=== PATIENT | male | born 1990 | race Caucasian/White ===

== ENCOUNTER 2018-02-02 12:50 | Inpatient (IN) | payer MEDICAID ==
[2018-02-02 15:02] LABS: WHITE BLOOD COUNT 8.7 10^3/ul (4.8-10.8)
[2018-02-02 15:02] LABS: ABNORMAL IP MESSAGE 1; HEMATOCRIT 22.9 % (42.0-52.0); MEAN CORPUSCULAR HEMOGLOBIN 17.1 pg (29.0-33.0); MEAN CORPUSCULAR HGB CONC 26.6 g/dl (32.0-37.0); MEAN CORPUSCULAR VOLUME 64.1 fl (82.0-101.0); MEAN PLATELET VOLUME 9.9 fl (7.4-10.4); PLATELET COUNT 516 10^3/UL (140-415); POSITIVE DIFF @See below; RED BLOOD COUNT 3.57 10^6/ul (4.70-6.10)
[2018-02-02 15:07] LABS: ADD MAN DIFF? YES; HEMOGLOBIN 6.1 g/dl (14.0-18.0)
[2018-02-02 15:18] LABS: INR 1.02; PARTIAL THROMBOPLASTIN TIME 27.1 Sec (25.0-35.0); PROTIME 13.5 Sec (11.9-14.9); PT RATIO 1.1
[2018-02-02 15:20] LABS: ALANINE AMINOTRANSFERASE 24 IU/L (13-69); ALBUMIN 3.6 g/dl (3.3-4.9); ALBUMIN/GLOBULIN RATIO 1.16; ALKALINE PHOSPHATASE 74 IU/L (42-121); ANION GAP 14 (8-16); ASPARTATE AMINO TRANSFERASE 16 IU/L (15-46); BILIRUBIN,INDIRECT 0.1 mg/dl (0-1.1); BILIRUBIN,TOTAL 0.1 mg/dl (0.2-1.3); BLOOD UREA NITROGEN 11 mg/dl (7-20); CALCIUM 8.7 mg/dl (8.4-10.2); CARBON DIOXIDE 30 mmol/L (21-31); CHLORIDE 103 mmol/L (97-110); CREATININE 0.66 mg/dl (0.61-1.24); GLUCOSE 94 mg/dl (70-220); POTASSIUM 3.6 mmol/L (3.5-5.1); SODIUM 143 mmol/L (135-144); TOTAL PROTEIN 6.7 g/dl (6.1-8.1)
[2018-02-02 15:34] LABS: TROPONIN-I < 0.012 ng/ml (0.000-0.120)
[2018-02-02 15:35] LABS: ANISOCYTOSIS 3+ (0-0); BAND NEUTROPHILS % (M) 1 % (0-4); GIANT THROMBO% (M) 1 % (0-0); HYPOCHROMASIA 3+ (0-0); LYMPHOCYTES #M 1.3 10^3/ul (0.8-2.9); LYMPHOCYTES % (M) 15 % (15-51); MICROCYTOSIS 3+ (0-0); MONOCYTE #M 0.4 10^3/ul (0.3-0.9); MONOCYTES % (M) 5 % (0-11); PLATELET ESTIMATE INCREASED; POIKILOCYTOSIS 1+ (0-0); POLYCHROMASIA 1+ (0-0); SEG NEUT #M 6.9 10^3/ul (1.6-7.5); SEGMENTED NEUTROPHILS (M) % 79 % (39-77); SMUDGE%M 6 % (0-0)
[2018-02-02 16:03] LABS: OCCULT BLOOD STOOL NEGATIVE (NEGATIVE)
[2018-02-02 16:07] LABS: IRON 15 ug/dl (35-150)
[2018-02-02 16:07] LABS: LIPASE 66 U/L (23-300)
[2018-02-02 16:16] LABS: % IRON SATURATION 3 % SAT (22-52); TOTAL IRON BINDING CAPACITY 434 ug/dl (241-421)
[2018-02-02] MEDS ORDERED: PANTOPRAZOLE 40 MG INJ IV (16:30)
[2018-02-02] MEDS ORDERED: ACETAMINOPHEN 325 MG TAB PO ×2 (16:30→20:00)
[2018-02-02] MEDS ORDERED: ONDANSETRON 4 MG INJ IV ×2 (16:30→20:00)
[2018-02-02] MEDS ORDERED: NACL 0.9% 3 ML SYG IV (17:00)
[2018-02-02] MEDS: PANTOPRAZOLE IV 80 MG in SOD CHLORIDE 0.9% 100 ML IV (17:29)
[2018-02-02 17:45] LABS: IMMEDIATE SPIN CROSSMATCH 1 1
[2018-02-02] MEDS: SOD CHLORIDE 0.9% 250 ML IV (17:49)
[2018-02-02 17:53] LABS: FERRITIN 1.5 ng/ml (17.9-464.0)
[2018-02-02] MEDS ORDERED: traMADol 50 MG TAB PO (20:00)
[2018-02-03 06:16] LABS: ADD MAN DIFF? NO
[2018-02-03 06:17] LABS: WHITE BLOOD COUNT 7.3 10^3/ul (4.8-10.8)
[2018-02-03 06:17] LABS: ABNORMAL IP MESSAGE 1; BASOPHIL # 0.1 10^3/ul (0.0-0.1); BASOPHILS % 1.5 % (0.0-2.0); EOSINOPHILS # 0.2 10^3/ul (0.0-0.5); EOSINOPHILS % 2.3 % (0.0-7.0); HEMOGLOBIN 7.7 g/dl (14.0-18.0); LYMPHOCYTES # 1.5 10^3/ul (0.8-2.9); LYMPHOCYTES % 21.1 % (15.0-51.0); MEAN CORPUSCULAR HEMOGLOBIN 18.4 pg (29.0-33.0); MEAN CORPUSCULAR HGB CONC 27.5 g/dl (32.0-37.0); MEAN CORPUSCULAR VOLUME 66.8 fl (82.0-101.0); MONOCYTE # 0.7 10^3/ul (0.3-0.9); MONOCYTES % 10.1 % (0.0-11.0); NEUTROPHIL # 4.7 10^3/ul (1.6-7.5); NEUTROPHILS % 64.9 % (39.0-77.0); PLATELET COUNT 522 10^3/UL (140-415); POSITIVE DIFF @See below; RED BLOOD COUNT 4.19 10^6/ul (4.70-6.10)
[2018-02-03 06:37] LABS: ALANINE AMINOTRANSFERASE 22 IU/L (13-69); ALBUMIN 3.8 g/dl (3.3-4.9); ALBUMIN/GLOBULIN RATIO 1.08; ALKALINE PHOSPHATASE 96 IU/L (42-121); ANION GAP 16 (8-16); ASPARTATE AMINO TRANSFERASE 19 IU/L (15-46); BILIRUBIN,INDIRECT 0.6 mg/dl (0-1.1); BILIRUBIN,TOTAL 0.6 mg/dl (0.2-1.3); BLOOD UREA NITROGEN 11 mg/dl (7-20); CALCIUM 8.7 mg/dl (8.4-10.2); CARBON DIOXIDE 26 mmol/L (21-31); CHLORIDE 104 mmol/L (97-110); GLUCOSE 89 mg/dl (70-220); POTASSIUM 4.1 mmol/L (3.5-5.1); SODIUM 142 mmol/L (135-144); TOTAL PROTEIN 7.3 g/dl (6.1-8.1)
[2018-02-03] MEDS: SOD CHLORIDE 0.9% 100 ML (11:03)
[2018-02-03] MEDS: IOHEXOL 300MG/ML 150 ML BTL (11:03)
[2018-02-03] MEDS: BISACODYL (EC) 5 MG TAB PO ×2 (15:13→20:03)
[2018-02-03] MEDS: MAGNESIUM CITRATE 300 ML BTL PO (16:14)
[2018-02-03] MEDS: POLYETHYLENE GLYCOL 3350 119 GM POWDER PO ×2 (16:14→20:03)
[2018-02-03] MEDS: SOD FERRIC GLUC COMPLX 125 MG in SOD CHLORIDE 0.9% 100 ML IVPB (16:31)
[2018-02-03] MEDS: PANTOPRAZOLE 40 MG INJ IV (18:15)
[2018-02-04] MEDS: PANTOPRAZOLE 40 MG INJ IV ×2 (05:49→18:46)
[2018-02-04 07:13] LABS: ADD MAN DIFF? NO
[2018-02-04 07:18] LABS: ABNORMAL IP MESSAGE 1; BASOPHIL # 0.1 10^3/ul (0.0-0.1); BASOPHILS % 1.5 % (0.0-2.0); EOSINOPHILS # 0.1 10^3/ul (0.0-0.5); EOSINOPHILS % 1.1 % (0.0-7.0); HEMATOCRIT 28.9 % (42.0-52.0); HEMOGLOBIN 8.2 g/dl (14.0-18.0); LYMPHOCYTES # 1.1 10^3/ul (0.8-2.9); LYMPHOCYTES % 15.3 % (15.0-51.0); MEAN CORPUSCULAR HEMOGLOBIN 18.6 pg (29.0-33.0); MEAN CORPUSCULAR HGB CONC 28.4 g/dl (32.0-37.0); MEAN CORPUSCULAR VOLUME 65.7 fl (82.0-101.0); MONOCYTE # 0.7 10^3/ul (0.3-0.9); MONOCYTES % 9.5 % (0.0-11.0); NEUTROPHIL # 5.4 10^3/ul (1.6-7.5); NEUTROPHILS % 72.3 % (39.0-77.0); PLATELET COUNT 551 10^3/UL (140-415); POSITIVE DIFF @See below; RED CELL DISTRIBUTION WIDTH 21.2 % (11.5-14.5)
[2018-02-04 07:18] LABS: WHITE BLOOD COUNT 7.5 10^3/ul (4.8-10.8)
[2018-02-04 07:44] LABS: ALANINE AMINOTRANSFERASE 23 IU/L (13-69); ALBUMIN 4.1 g/dl (3.3-4.9); ALBUMIN/GLOBULIN RATIO 1.13; ALKALINE PHOSPHATASE 98 IU/L (42-121); ANION GAP 17 (8-16); ASPARTATE AMINO TRANSFERASE 20 IU/L (15-46); BILIRUBIN,INDIRECT 0.4 mg/dl (0-1.1); BILIRUBIN,TOTAL 0.4 mg/dl (0.2-1.3); BLOOD UREA NITROGEN 15 mg/dl (7-20); CARBON DIOXIDE 25 mmol/L (21-31); CHLORIDE 106 mmol/L (97-110); CREATININE 0.75 mg/dl (0.61-1.24); GLUCOSE 84 mg/dl (70-220); SODIUM 144 mmol/L (135-144); TOTAL PROTEIN 7.7 g/dl (6.1-8.1)
[2018-02-04 07:51] LABS: INR 1.09; PROTIME 14.3 Sec (11.9-14.9); PT RATIO 1.1
[2018-02-04] MEDS: SOD FERRIC GLUC COMPLX 125 MG in SOD CHLORIDE 0.9% 100 ML IVPB (17:00)
[2018-02-04] MEDS: PROPOFOL 20 ML (17:00)
[2018-02-05] MEDS: PANTOPRAZOLE 40 MG INJ IV ×2 (06:52→17:42)
[2018-02-05 06:53] LABS: ADD MAN DIFF? NO; HAAIG REFLEX REFLEX FILED
[2018-02-05 07:00] LABS: ABNORMAL IP MESSAGE 1; BASOPHIL # 0.1 10^3/ul (0.0-0.1); BASOPHILS % 1.6 % (0.0-2.0); EOSINOPHILS # 0.2 10^3/ul (0.0-0.5); EOSINOPHILS % 2.3 % (0.0-7.0); HEMATOCRIT 27.9 % (42.0-52.0); HEMOGLOBIN 7.9 g/dl (14.0-18.0); LYMPHOCYTES # 1.1 10^3/ul (0.8-2.9); MEAN CORPUSCULAR HEMOGLOBIN 18.9 pg (29.0-33.0); MEAN CORPUSCULAR HGB CONC 28.3 g/dl (32.0-37.0); MEAN CORPUSCULAR VOLUME 66.6 fl (82.0-101.0); MEAN PLATELET VOLUME 9.8 fl (7.4-10.4); MONOCYTE # 0.7 10^3/ul (0.3-0.9); MONOCYTES % 10.4 % (0.0-11.0); NEUTROPHIL # 4.4 10^3/ul (1.6-7.5); NEUTROPHILS % 68.5 % (39.0-77.0); PLATELET COUNT 533 10^3/UL (140-415); POSITIVE DIFF @See below; RED BLOOD COUNT 4.19 10^6/ul (4.70-6.10); RED CELL DISTRIBUTION WIDTH 21.4 % (11.5-14.5)
[2018-02-05 07:00] LABS: WHITE BLOOD COUNT 6.4 10^3/ul (4.8-10.8)
[2018-02-05 07:27] LABS: ANION GAP 16 (8-16); BLOOD UREA NITROGEN 16 mg/dl (7-20); CALCIUM 8.9 mg/dl (8.4-10.2); CARBON DIOXIDE 26 mmol/L (21-31); CHLORIDE 105 mmol/L (97-110); CREATININE 0.79 mg/dl (0.61-1.24); GLUCOSE 80 mg/dl (70-220); MAGNESIUM 2.1 mg/dl (1.7-2.5); PHOSPHORUS 4.8 mg/dl (2.5-4.9); POTASSIUM 4.1 mmol/L (3.5-5.1); SODIUM 143 mmol/L (135-144)
[2018-02-05 07:52] LABS: HEPATITIS B SURFACE ANTIGEN NEGATIVE (NEGATIVE)
[2018-02-05 08:10] LABS: HEPATITIS B CORE ANTIBODY NEGATIVE (NEGATIVE); HEPATITIS C VIRAL ANTIBODY NEGATIVE (NEGATIVE)
[2018-02-05 08:11] LABS: HIV 1&2 ANTIBODY NEGATIVE (NEGATIVE)
[2018-02-05 11:32] LABS: PATH REVIEW CH
[2018-02-05 16:36] LABS: CARCINOEMBRYONIC ANTIGEN 0.8 ng/ml (0.0-5.0)
[2018-02-05] MEDS: SOD FERRIC GLUC COMPLX 125 MG in SOD CHLORIDE 0.9% 100 ML IVPB (17:43)
[2018-02-06] MEDS: PANTOPRAZOLE 40 MG INJ IV ×2 (05:36→18:01)
[2018-02-06 06:15] LABS: ADD MAN DIFF? NO
[2018-02-06 06:18] LABS: WHITE BLOOD COUNT 7.2 10^3/ul (4.8-10.8)
[2018-02-06 06:18] LABS: ABNORMAL IP MESSAGE 1; BASOPHIL # 0.1 10^3/ul (0.0-0.1); BASOPHILS % 1.8 % (0.0-2.0); EOSINOPHILS # 0.2 10^3/ul (0.0-0.5); EOSINOPHILS % 3.3 % (0.0-7.0); HEMATOCRIT 27.4 % (42.0-52.0); HEMOGLOBIN 7.8 g/dl (14.0-18.0); LYMPHOCYTES # 1.3 10^3/ul (0.8-2.9); LYMPHOCYTES % 18.6 % (15.0-51.0); MEAN CORPUSCULAR HEMOGLOBIN 19.2 pg (29.0-33.0); MEAN CORPUSCULAR HGB CONC 28.5 g/dl (32.0-37.0); MEAN CORPUSCULAR VOLUME 67.3 fl (82.0-101.0); MEAN PLATELET VOLUME 10.2 fl (7.4-10.4); MONOCYTE # 0.8 10^3/ul (0.3-0.9); MONOCYTES % 11.1 % (0.0-11.0); NEUTROPHIL # 4.7 10^3/ul (1.6-7.5); NEUTROPHILS % 64.9 % (39.0-77.0); PLATELET COUNT 501 10^3/UL (140-415); POSITIVE DIFF @See below; RED BLOOD COUNT 4.07 10^6/ul (4.70-6.10); RED CELL DISTRIBUTION WIDTH 21.3 % (11.5-14.5)
[2018-02-06] MEDS: IOHEXOL 300MG/ML 150 ML BTL ×3 (06:45→06:47)
[2018-02-06] MEDS: SOD CHLORIDE 0.9% 100 ML (06:47)
[2018-02-06 06:56] LABS: ANION GAP 14 (8-16); BLOOD UREA NITROGEN 10 mg/dl (7-20); CALCIUM 8.8 mg/dl (8.4-10.2); CARBON DIOXIDE 28 mmol/L (21-31); CHLORIDE 106 mmol/L (97-110); CREATININE 0.77 mg/dl (0.61-1.24); GLUCOSE 87 mg/dl (70-220); MAGNESIUM 1.9 mg/dl (1.7-2.5); POTASSIUM 3.9 mmol/L (3.5-5.1); SODIUM 144 mmol/L (135-144)
[2018-02-06] MEDS: SOD FERRIC GLUC COMPLX 125 MG in SOD CHLORIDE 0.9% 100 ML IVPB (17:00)
[2018-02-07] MEDS: PANTOPRAZOLE 40 MG INJ IV ×2 (05:29→17:20)
[2018-02-07 06:39] LABS: OCCULT BLOOD STOOL NEGATIVE (NEGATIVE)
[2018-02-07 07:12] LABS: ADD MAN DIFF? NO
[2018-02-07 07:15] LABS: WHITE BLOOD COUNT 7.4 10^3/ul (4.8-10.8)
[2018-02-07 07:15] LABS: ABNORMAL IP MESSAGE 1; BASOPHIL # 0.1 10^3/ul (0.0-0.1); BASOPHILS % 1.6 % (0.0-2.0); EOSINOPHILS # 0.2 10^3/ul (0.0-0.5); EOSINOPHILS % 2.8 % (0.0-7.0); HEMATOCRIT 30.6 % (42.0-52.0); HEMOGLOBIN 8.4 g/dl (14.0-18.0); LYMPHOCYTES # 1.2 10^3/ul (0.8-2.9); LYMPHOCYTES % 16.3 % (15.0-51.0); MEAN CORPUSCULAR HEMOGLOBIN 18.9 pg (29.0-33.0); MEAN CORPUSCULAR HGB CONC 27.5 g/dl (32.0-37.0); MEAN CORPUSCULAR VOLUME 68.8 fl (82.0-101.0); MEAN PLATELET VOLUME 9.6 fl (7.4-10.4); MONOCYTE # 0.6 10^3/ul (0.3-0.9); MONOCYTES % 7.9 % (0.0-11.0); NEUTROPHIL # 5.3 10^3/ul (1.6-7.5); NEUTROPHILS % 71.1 % (39.0-77.0); PLATELET COUNT 534 10^3/UL (140-415); POSITIVE DIFF @See below; RED BLOOD COUNT 4.45 10^6/ul (4.70-6.10); RED CELL DISTRIBUTION WIDTH 23.6 % (11.5-14.5)
[2018-02-07 07:58] LABS: ANION GAP 12 (8-16); BLOOD UREA NITROGEN 6 mg/dl (7-20); CALCIUM 9.2 mg/dl (8.4-10.2); CARBON DIOXIDE 29 mmol/L (21-31); CHLORIDE 108 mmol/L (97-110); CREATININE 0.73 mg/dl (0.61-1.24); GLUCOSE 97 mg/dl (70-220); MAGNESIUM 1.8 mg/dl (1.7-2.5); PHOSPHORUS 3.5 mg/dl (2.5-4.9); POTASSIUM 4.1 mmol/L (3.5-5.1); SODIUM 145 mmol/L (135-144)
[2018-02-07] MEDS: SOD FERRIC GLUC COMPLX 125 MG in SOD CHLORIDE 0.9% 100 ML IVPB (16:40)
[2018-02-08 05:49] LABS: ADD MAN DIFF? NO
[2018-02-08 05:52] LABS: WHITE BLOOD COUNT 9.7 10^3/ul (4.8-10.8)
[2018-02-08 05:52] LABS: ABNORMAL IP MESSAGE 1; BASOPHIL # 0.1 10^3/ul (0.0-0.1); BASOPHILS % 1.2 % (0.0-2.0); EOSINOPHILS # 0.3 10^3/ul (0.0-0.5); EOSINOPHILS % 2.9 % (0.0-7.0); HEMATOCRIT 29.5 % (42.0-52.0); HEMOGLOBIN 8.3 g/dl (14.0-18.0); LYMPHOCYTES # 1.3 10^3/ul (0.8-2.9); LYMPHOCYTES % 13.4 % (15.0-51.0); MEAN CORPUSCULAR HEMOGLOBIN 19.4 pg (29.0-33.0); MEAN CORPUSCULAR HGB CONC 28.1 g/dl (32.0-37.0); MEAN CORPUSCULAR VOLUME 69.1 fl (82.0-101.0); MEAN PLATELET VOLUME 9.7 fl (7.4-10.4); MONOCYTE # 0.8 10^3/ul (0.3-0.9); NEUTROPHIL # 7.2 10^3/ul (1.6-7.5); NEUTROPHILS % 74.1 % (39.0-77.0); PLATELET COUNT 475 10^3/UL (140-415); POSITIVE DIFF @See below; RED BLOOD COUNT 4.27 10^6/ul (4.70-6.10); RED CELL DISTRIBUTION WIDTH 25.2 % (11.5-14.5)
[2018-02-08] MEDS: PANTOPRAZOLE 40 MG INJ IV ×2 (06:06→17:41)
[2018-02-08 06:19] LABS: ANION GAP 11 (8-16); BLOOD UREA NITROGEN 7 mg/dl (7-20); CALCIUM 9.1 mg/dl (8.4-10.2); CARBON DIOXIDE 30 mmol/L (21-31); CHLORIDE 106 mmol/L (97-110); CREATININE 0.76 mg/dl (0.61-1.24); GLUCOSE 90 mg/dl (70-220); MAGNESIUM 1.9 mg/dl (1.7-2.5); PHOSPHORUS 3.7 mg/dl (2.5-4.9); SODIUM 143 mmol/L (135-144)
[2018-02-08 07:11] LABS: ERYTHROCYTE SEDIMENTATION RATE 40 mm/Hr (0-15)
[2018-02-09] MEDS: PANTOPRAZOLE 40 MG INJ IV (05:34)
[2018-02-09 06:04] LABS: ADD MAN DIFF? NO
[2018-02-09 06:15] LABS: ABNORMAL IP MESSAGE 1; BASOPHIL # 0.1 10^3/ul (0.0-0.1); BASOPHILS % 1.1 % (0.0-2.0); EOSINOPHILS # 0.4 10^3/ul (0.0-0.5); EOSINOPHILS % 3.4 % (0.0-7.0); HEMATOCRIT 32.8 % (42.0-52.0); HEMOGLOBIN 9.3 g/dl (14.0-18.0); LYMPHOCYTES # 1.3 10^3/ul (0.8-2.9); LYMPHOCYTES % 12.2 % (15.0-51.0); MEAN CORPUSCULAR HGB CONC 28.4 g/dl (32.0-37.0); MEAN CORPUSCULAR VOLUME 70.5 fl (82.0-101.0); MONOCYTE # 0.9 10^3/ul (0.3-0.9); NEUTROPHILS % 74.9 % (39.0-77.0); PLATELET COUNT 499 10^3/UL (140-415); POSITIVE DIFF @See below; RED BLOOD COUNT 4.65 10^6/ul (4.70-6.10); RED CELL DISTRIBUTION WIDTH 27.5 % (11.5-14.5)
[2018-02-09 06:15] LABS: WHITE BLOOD COUNT 10.7 10^3/ul (4.8-10.8)
[2018-02-09 06:33] LABS: ANION GAP 13 (8-16); BLOOD UREA NITROGEN 9 mg/dl (7-20); CALCIUM 9.2 mg/dl (8.4-10.2); CARBON DIOXIDE 29 mmol/L (21-31); CHLORIDE 105 mmol/L (97-110); CREATININE 0.73 mg/dl (0.61-1.24); GLUCOSE 88 mg/dl (70-220); PHOSPHORUS 4.2 mg/dl (2.5-4.9); POTASSIUM 4.2 mmol/L (3.5-5.1); SODIUM 143 mmol/L (135-144)
[2018-02-10] MEDS: PANTOPRAZOLE (EC) 40 MG TAB PO (05:50)
[2018-02-10 06:25] LABS: ADD MAN DIFF? NO
[2018-02-10 06:30] LABS: ABNORMAL IP MESSAGE 1; BASOPHIL # 0.1 10^3/ul (0.0-0.1); BASOPHILS % 0.9 % (0.0-2.0); EOSINOPHILS # 0.4 10^3/ul (0.0-0.5); EOSINOPHILS % 3.5 % (0.0-7.0); HEMATOCRIT 32.6 % (42.0-52.0); HEMOGLOBIN 9.4 g/dl (14.0-18.0); LYMPHOCYTES # 1.5 10^3/ul (0.8-2.9); LYMPHOCYTES % 12.2 % (15.0-51.0); MEAN CORPUSCULAR HEMOGLOBIN 20.4 pg (29.0-33.0); MEAN CORPUSCULAR HGB CONC 28.8 g/dl (32.0-37.0); MEAN CORPUSCULAR VOLUME 70.7 fl (82.0-101.0); MEAN PLATELET VOLUME 9.9 fl (7.4-10.4); MONOCYTE # 1.1 10^3/ul (0.3-0.9); MONOCYTES % 9.1 % (0.0-11.0); NEUTROPHILS % 73.9 % (39.0-77.0); PLATELET COUNT 472 10^3/UL (140-415); POSITIVE DIFF @See below; RED BLOOD COUNT 4.61 10^6/ul (4.70-6.10); RED CELL DISTRIBUTION WIDTH 28.3 % (11.5-14.5)
[2018-02-10 06:30] LABS: WHITE BLOOD COUNT 12.1 10^3/ul (4.8-10.8)
[2018-02-10 07:37] LABS: ANION GAP 15 (8-16); BLOOD UREA NITROGEN 12 mg/dl (7-20); CALCIUM 9.2 mg/dl (8.4-10.2); CARBON DIOXIDE 27 mmol/L (21-31); CHLORIDE 104 mmol/L (97-110); CREATININE 0.69 mg/dl (0.61-1.24); GLUCOSE 90 mg/dl (70-220); MAGNESIUM 2.1 mg/dl (1.7-2.5); PHOSPHORUS 4.2 mg/dl (2.5-4.9); POTASSIUM 4.3 mmol/L (3.5-5.1); SODIUM 142 mmol/L (135-144)
== END 2018-02-10 11:58 | disposition home or self-care (01) | DRG 375 ==
LOC: FTE 12:50 → PP2 16:05
PROC: 0DB98ZX Excision of Duodenum, Via Natural or Artificial Opening Endoscopic, Diagnostic (ICD-10-PCS; principal; 2018-02-04 16:30)
PROC: 0DB68ZX Excision of Stomach, Via Natural or Artificial Opening Endoscopic, Diagnostic (ICD-10-PCS; 2018-02-04 16:30)
PROC: 0DBP8ZX Excision of Rectum, Via Natural or Artificial Opening Endoscopic, Diagnostic (ICD-10-PCS; 2018-02-04 16:30)
PROC: 30233N1 Transfusion of Nonautologous Red Blood Cells into Peripheral Vein, Percutaneous Approach (ICD-10-PCS; 2018-02-04 16:30)
DX: C20 Malignant neoplasm of rectum (principal); E44.0 Moderate protein-calorie malnutrition; Z68.1 Body mass index [BMI] 19.9 or less, adult; K29.70 Gastritis, unspecified, without bleeding; D50.0 Iron deficiency anemia secondary to blood loss (chronic); K44.9 Diaphragmatic hernia without obstruction or gangrene; D47.3 Essential (hemorrhagic) thrombocythemia
CPT/HCPCS: 36415; 36430; 71270; 72197; 74018; 74177; 77334; 80048; 80053; 82270; 82378; 82728; 83540; 83690; 83735; 84100; 84443; 84484; 85025; 85610; 85651; 85730; 86703; 86704; 86709; 86803; 86850; 86900; 86901; 86920; 87340; 88305; 88312; 93005; 96374; 99291-25

== ENCOUNTER 2018-02-15 08:50 | Observation (INO) | payer MEDICAID ==
[~2018-02-15 08:50] MED LIST: CEFAZOLIN 2 GM/50 ML (PMX) 50 ML IVPB
[2018-02-15] MEDS ORDERED: FENTAnyl 50 MCG/ML VIAL (10:30)
[2018-02-15] MEDS ORDERED: LIDOCAINE 2% (SDV) 5 ML INJ (10:30)
[2018-02-15] MEDS ORDERED: PROPOFOL 20 ML (10:30)
[2018-02-15] MEDS ORDERED: ONDANSETRON 4 MG INJ (10:30)
[2018-02-15] MEDS ORDERED: CEFAZOLIN 1 GM INJ (10:32)
[2018-02-15 10:46] LABS: ADD MAN DIFF? NO
[2018-02-15 10:49] LABS: WHITE BLOOD COUNT 6.2 10^3/ul (4.8-10.8)
[2018-02-15 10:49] LABS: ABNORMAL IP MESSAGE 1; BASOPHIL # 0.1 10^3/ul (0.0-0.1); BASOPHILS % 1.5 % (0.0-2.0); EOSINOPHILS # 0.2 10^3/ul (0.0-0.5); EOSINOPHILS % 3.4 % (0.0-7.0); HEMATOCRIT 29.3 % (42.0-52.0); HEMOGLOBIN 8.6 g/dl (14.0-18.0); LYMPHOCYTES # 1.4 10^3/ul (0.8-2.9); LYMPHOCYTES % 23.1 % (15.0-51.0); MEAN CORPUSCULAR HEMOGLOBIN 21.8 pg (29.0-33.0); MEAN CORPUSCULAR HGB CONC 29.4 g/dl (32.0-37.0); MEAN CORPUSCULAR VOLUME 74.4 fl (82.0-101.0); MEAN PLATELET VOLUME 10.4 fl (7.4-10.4); MONOCYTE # 0.3 10^3/ul (0.3-0.9); MONOCYTES % 5.5 % (0.0-11.0); NEUTROPHIL # 4.1 10^3/ul (1.6-7.5); NEUTROPHILS % 66.2 % (39.0-77.0); PLATELET COUNT 446 10^3/UL (140-415); POSITIVE DIFF @See below; RED BLOOD COUNT 3.94 10^6/ul (4.70-6.10)
[2018-02-15 10:59] LABS: HOLD TRANSMISSIONS 1
[2018-02-15 11:13] LABS: ALANINE AMINOTRANSFERASE 15 IU/L (13-69); ALBUMIN 3.5 g/dl (3.3-4.9); ALBUMIN/GLOBULIN RATIO 1.06; ALKALINE PHOSPHATASE 72 IU/L (42-121); ANION GAP 13 (8-16); ASPARTATE AMINO TRANSFERASE 18 IU/L (15-46); BILIRUBIN,INDIRECT 0.4 mg/dl (0-1.1); BILIRUBIN,TOTAL 0.4 mg/dl (0.2-1.3); CARBON DIOXIDE 27 mmol/L (21-31); CHLORIDE 106 mmol/L (97-110); GLUCOSE 88 mg/dl (70-220); TOTAL PROTEIN 6.8 g/dl (6.1-8.1)
[2018-02-15 11:18] LABS: POTASSIUM 3.9 mmol/L (3.5-5.1); SODIUM 142 mmol/L (135-144)
[2018-02-15 11:19] LABS: BLOOD UREA NITROGEN 12 mg/dl (7-20); CALCIUM 8.6 mg/dl (8.4-10.2); CREATININE 0.65 mg/dl (0.61-1.24)
[2018-02-15 11:26] LABS: INR 1.03; PROTIME 13.6 Sec (11.9-14.9); PT RATIO 1.1
[2018-02-15 11:40] LABS: PARTIAL THROMBOPLASTIN TIME 29.7 Sec (25.0-35.0)
[2018-02-15] MEDS ORDERED: ONDANSETRON 4 MG INJ IV ×2 (12:00→14:00)
[2018-02-15] MEDS ORDERED: HYDROmorphONE (0.2 MG/ML) 10ML SYG IV ×2 (12:00)
[2018-02-15] MEDS ORDERED: FENTAnyl 50 MCG/ML VIAL IV ×2 (12:00)
[2018-02-15] MEDS: LACTATED RINGER'S 1,000 ML IV (13:55)
[2018-02-15] MEDS: SOD CHLORIDE 0.9% 1,000 ML IV ×2 (13:55→17:59)
[2018-02-15] MEDS ORDERED: morphine 2 MG INJ IV (14:00)
[2018-02-15] MEDS ORDERED: HYDROCODONE/APAP (5/325) TAB PO (14:00)
[2018-02-15] MEDS: SOD CHLORIDE 0.9% 250 ML IV* (14:06)
[2018-02-15 15:03] LABS: IMMEDIATE SPIN CROSSMATCH 1 4
[2018-02-15] MEDS: CEFAZOLIN 1 GM/50 ML (PMX) 50 ML IVPB (18:09)
[2018-02-16] MEDS: CEFAZOLIN 1 GM/50 ML (PMX) 50 ML IVPB ×4 (00:22→17:41)
[2018-02-16] MEDS ORDERED: ACETAMINOPHEN 325 MG TAB PO (00:30)
[2018-02-16] MEDS ORDERED: morphine 2 MG INJ IV (00:30)
[2018-02-16] MEDS: SOD CHLORIDE 0.9% 1,000 ML IV (11:58)
[2018-02-16] MEDS: LACTATED RINGER'S 1,000 ML IV (13:33)
[2018-02-16 16:41] LABS: ADD MAN DIFF? NO
[2018-02-16 16:44] LABS: ABNORMAL IP MESSAGE 1; BASOPHIL # 0.1 10^3/ul (0.0-0.1); BASOPHILS % 1.6 % (0.0-2.0); EOSINOPHILS # 0.2 10^3/ul (0.0-0.5); EOSINOPHILS % 3.3 % (0.0-7.0); HEMATOCRIT 37.2 % (42.0-52.0); HEMOGLOBIN 11.3 g/dl (14.0-18.0); LYMPHOCYTES # 1.3 10^3/ul (0.8-2.9); LYMPHOCYTES % 20.5 % (15.0-51.0); MEAN CORPUSCULAR HEMOGLOBIN 22.9 pg (29.0-33.0); MEAN CORPUSCULAR HGB CONC 30.4 g/dl (32.0-37.0); MEAN CORPUSCULAR VOLUME 75.3 fl (82.0-101.0); MEAN PLATELET VOLUME 9.7 fl (7.4-10.4); MONOCYTE # 0.3 10^3/ul (0.3-0.9); MONOCYTES % 5.1 % (0.0-11.0); NEUTROPHIL # 4.2 10^3/ul (1.6-7.5); NEUTROPHILS % 69.2 % (39.0-77.0); PLATELET COUNT 472 10^3/UL (140-415); POSITIVE DIFF @See below; RED BLOOD COUNT 4.94 10^6/ul (4.70-6.10); RED CELL DISTRIBUTION WIDTH 29.9 % (11.5-14.5)
[2018-02-16 16:44] LABS: WHITE BLOOD COUNT 6.1 10^3/ul (4.8-10.8)
== END 2018-02-16 19:05 | disposition home or self-care (01) ==
LOC: SDS 08:50 → MS1 15:35 → SDS 14:06 → MS1 14:06
DX: C20 Malignant neoplasm of rectum (principal); D50.0 Iron deficiency anemia secondary to blood loss (chronic); Z87.891 Personal history of nicotine dependence
CPT/HCPCS: 36430; 80053; 85025; 85610; 85730; 86850; 86900; 86901; 86920; 88307; 88331